=== PATIENT | female | born 1960 | race Caucasian/White ===

== ENCOUNTER 2019-05-28 06:20 | Day surgery (SDC) | payer BC ==
[~2019-05-28 06:20] MED LIST: CEFAZOLIN 2 Gram 2 GM/50 ML BAG IVPB ONE; CELECOXIB 100 MG CAPSULE PO ONE; FAMOTIDINE 20MG TABLET PO ONE; MECLIZINE 25 MG TABLET PO ONE; METOCLOPRAMIDE 10 MG TABLET PO ONE; VANCOMYCIN 1GM/200ML PREMIX 1 GM/200 ML PIGGYBACK IVPB ONE
[2019-05-28] MEDS ORDERED: EPHEDRINE SULFATE 50 MG/ML ML IV ONE (06:21)
[2019-05-28] MEDS ORDERED: DEXMEDETOMIDINE HCL 200 MCG/2 ML VIAL IV ONE (06:21)
[2019-05-28] MEDS ORDERED: MIDAZOLAM HCL 2MG/2ML VIAL IV ONE (06:21)
[2019-05-28] MEDS ORDERED: TRANEXAMIC ACID 1,000 MG/10 ML ML IV ONE (06:21)
[2019-05-28] MEDS ORDERED: DEXAMETHASONE 4 MG/ML 1ML VIAL IVP ONE (06:21)
[2019-05-28] MEDS ORDERED: ROPIVACAINE HCL (NAROPIN) /PF 5MG/ML 20ML VIAL IV ONE (06:21)
[2019-05-28] MEDS ORDERED: KETAMINE HCL 100MG/1ML VIAL INJ ONE (06:21)
[2019-05-28] MEDS ORDERED: 0.9 % SODIUM CHLORIDE 1000ML 1,000 ML IV ONE (07:00)
[2019-05-28] MEDS ORDERED: BUPIVACAINE 0.5% W/EPI MPF 30 ML VIAL SQ ONE (09:30)
[2019-05-28] MEDS ORDERED: TRANEXAMIC ACID 1,000 MG/10 ML ML IU ONE ×2 (09:36→10:42)
[2019-05-28 09:37] LABS: ABO GROUP A; ANTIBODY SCREEN NEGATIVE (NEGATIVE)
[2019-05-28] MEDS ORDERED: RINGERS SOLUTION,LACTATED 1,000 ML IV ONE ×2 (09:38)
[2019-05-28] MEDS ORDERED: HYDROCODONE/APAP 10/325 TABLET PO PRN (11:03)
[2019-05-28] MEDS ORDERED: ONDANSETRON HCL IV 4 MG/2 ML VIAL IVP PRN (11:03)
[2019-05-28] MEDS ORDERED: ZOLPIDEM TARTRATE 5 MG TABLET PO PRN (11:03)
[2019-05-28] MEDS ORDERED: HYDROMORPHONE HCL 2 MG/ML VIAL IM PRN (11:03)
[2019-05-28] MEDS ORDERED: NALOXONE 0.4 MG/1 ML VIAL IVP PRN (11:03)
[2019-05-28] MEDS ORDERED: ACETAMINOPHEN 325 MG TAB PO PRN (11:03)
[2019-05-28] MEDS ORDERED: TRAMADOL HCL 50 MG TABLET PO PRN (11:03)
[2019-05-28] MEDS ORDERED: KETOROLAC 30 MG/ML VIAL IVP PRN ×2 (11:03)
[2019-05-28] MEDS ORDERED: BISACODYL 10 MG SUPP RC PRN (11:03)
[2019-05-28] MEDS ORDERED: DIPHENHYDRAMINE HCL 25 MG CAPSULE PO PRN (11:03)
[2019-05-28] MEDS ORDERED: AL HYDROX/MAG HYDROX 30ML UD PO PRN (11:03)
[2019-05-28] MEDS ORDERED: MAGNESIUM HYDROXIDE 30 ML UDC PO PRN (11:03)
[2019-05-28] MEDS ORDERED: ACETAMINOPHEN W/ CODEINE 300MG/60MG TABLET PO PRN ×2 (11:03)
[2019-05-28] MEDS ORDERED: FLUCONAZOLE 100 MG TABLET PO ONE (13:00)
[2019-05-28] MEDS: POTASSIUM CHLORIDE/D5-0.9%NACL 20 MEQ/1,000 ML BAG IV SCH (15:09)
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
[2019-05-28] MEDS: CEFAZOLIN 2 Gram 2 GM/50 ML BAG IVPB SCH (16:53)
[2019-05-28 19:36] LABS: RH TYPE NEGATIVE
[2019-05-28] MEDS: DOCUSATE SODIUM 100 MG CAPSULE PO SCH (21:47)
[2019-05-28] MEDS: MAGNESIUM OXIDE 400 MG TABLET PO SCH (21:47)
[2019-05-28] MEDS: TOPIRAMATE 25MG TABLET PO SCH (21:49)
[2019-05-28] MEDS ORDERED: AMLODIPINE BESYLATE 5MG TAB PO SCH (22:00)
[2019-05-29] MEDS: HYDROCODONE/APAP 10/325 TABLET PO PRN ×3 (00:20→13:45)
[2019-05-29] MEDS: CEFAZOLIN 2 Gram 2 GM/50 ML BAG IVPB SCH ×2 (00:22→08:03)
[2019-05-29] MEDS: POTASSIUM CHLORIDE/D5-0.9%NACL 20 MEQ/1,000 ML BAG IV SCH ×3 (01:07→11:49)
[2019-05-29] MEDS: METOPROLOL TART 50 MG TABLET PO SCH ×2 (06:51→11:46)
[2019-05-29] MEDS ORDERED: LEVOTHYROXINE SODIUM 50 MCG TABLET PO SCH (07:00)
[2019-05-29 07:43] LABS: HEMATOCRIT 33.7 % (35.0-47.0)
[2019-05-29 07:53] LABS: BLOOD UREA NITROGEN 15 mg/dL (6-20); EST GLOMERULAR FILTRATION RATE > 60 mL/min; GLUCOSE,RANDOM 93 mg/dL (74-109)
[2019-05-29] MEDS: DOCUSATE SODIUM 100 MG CAPSULE PO SCH (09:53)
[2019-05-29] MEDS: TOPIRAMATE 25MG TABLET PO SCH (09:55)
[2019-05-29] MEDS: MAGNESIUM OXIDE 400 MG TABLET PO SCH (09:55)
[2019-05-29] MEDS ORDERED: SPIRONOLACTONE 25 MG TAB PO SCH (10:00)
[2019-05-29] MEDS ORDERED: FERROUS SULFATE 325 MG TAB PO SCH (10:00)
[2019-05-29] MEDS ORDERED: RIVAROXABAN 10 MG TABLET PO SCH (10:00)
[2019-05-29] MEDS ORDERED: ATORVASTATIN 20 MG TABLET PO SCH (10:00)
[2019-05-29] MEDS ORDERED: ASPIRIN 81 MG TABEC PO SCH (10:00)
[2019-05-29] MEDS ORDERED: LISINOPRIL 20 MG TABLET PO SCH (12:00)
--- NOTE | 2019-05-29 12:00 | Physical Therapy Tx Note ---
Physical Therapy Tx Note - Treatment Note Tolerated: Good (Patient feeling quite good this am and ready to get up for gait and stairs. Monitoring her own sugar levels for some reason. Patient able to walk short distance with standard walker:about 40 feet with CGA and WBAT. Requested wheelchair to take her to stairs so we pushed her to stairs and she was able to ambulate down three steps then back up three steps with walker and rail for support. She did this twice because she has five steps to ascend to get into her house. Wheeled her back to her room and she transferred independently to the bed the worked on knee exercises and tolerated. Left her seated at edge of bed because OT was ready to work with her for clean-up and dressing. came later after we were done and requested to see how to help patient on stairs: we demonstrated for him to have patient hang onto walker and another person for stability as have no rail at steps she will go up to get into house. seemed to understand.) Total Time Spent With Patient: 30 Physical Therapy Tx Note: Detail (See above.) Physical Therapy Problem List: Detail (1. Weakness and decreased ROM right knee 2. Decreased mobility for transfers and gait 3. Not able to do stairs yet to get into house.) Physical Therapy Goals: Patient will be able to mobilize with min assist or independently and walk with standard walker at least 50 feet and climb five jax ps to be able to get into house before discharge home. Prognosis: Good (Patient was able with assist of rail to go up and down steps but will not have that at home. Another person is going to assist so should be able to be successful getting into house with his assistance and walker.) Physical Therapy Plan: Patient has passed goals of mobility, gait and stairs to be discharged from PT. Will have home therapy to progress when gets home. Available to be seen again by PT if patient or has issues.
--- NOTE | 2019-05-29 12:10 | Occupational Therapy Tx Note ---
Occupational Therapy Tx Note - Treatment Note Tolerated: Good Total Time Spent With Patient: 32 (2 ADL) Occupational Therapy Treatment Note: Detail (S: Pt at EOB just finishing with PT upon therapist arrival, agreeable to OT Tx, MERLE Lawrence present and Pt and RN monitoring blood glucose. O: EOB to/from standard toilet with FWW and MOD I, Pt demos good controlled descent to toilet. OT educated Pt on modified techniques for LB dress, underwear, pants, socks, Pt demos good follow through at MOD I level with increased time and modified technique. Therapist instructed Pt on techniques to don tedhose and reminded Pt of wearing schedule, Pt reports spouse assists with compression socks at home and can assist if needed. OT educated Pt on modified technique for sit-stands to decreased pain and increase independence. OT educated Pt car and tub/shower TFs as well as home safety, Pt verbalizes understanding. EOB to supine with MOD I, increased time. Pt's glucose slowly dropping throughout Tx, 64 at end of session, Pt reports this is okay but MERLE Lawrence notified anyway. A: Pt requiring increased time for ADLs and functional TFs, however demos and verbalizes good safety and independence with ADLs and functional mobility. Reports spouse will assist as needed.) Occupational Therapy Problem List: Detail Occupational Therapy Goals: GOALS MET: 1. Pt will be MOD I with LB dressing using AE as needed. 2. Pt will be MOD I with fxl TFs using walker. 3. Pt will verbalize home safety Prognosis: Good Occupational Therapy Plan: No further skilled IP OT needs/goals identified, DC OT services, recommend DC home with spouse assist as needed when medically ready.
--- NOTE | 2019-05-30 15:40 | Operative Note ---
DATE OF SURGERY: 05/28/2019 PREOPERATIVE DIAGNOSIS: Endstage arthrosis of the right knee. POSTOPERATIVE DIAGNOSIS: Endstage arthrosis of the right knee. OPERATION: Cemented right total knee arthroplasty using [employer] Cathryn II components, with a size 4 Oxinium posterior stabilized femoral component, size 3 stem tibial baseplate, a 9 mm posterior stabilized tibial insert, and a 35 mm all plastic patella. SURGEON: Urbano Yousif M.D. ANESTHESIA: Spinal. PREPARATION: Chloraprep. INDIVIDUAL CONSIDERATIONS: This lady who is morbidly obese with body mass index above 40. Because of very thick soft tissue in areas almost 3 inches it made exposure and surgical time longer and more difficult. PROCEDURE: The patient was taken to the operating room and placed supine on the operating room table. She had a successful induction with spinal anesthetic. Her right lower extremity was prepped and draped in the usual fashion. The limb was elevated, the tourniquet was inflated at 300 mmHg. The patient had a midline approach to the knee. Sharp dissection carried down through the skin and subcutaneous tissue, which was abundant. Small veins were coagulated with the Bovie. A medial arthrotomy was performed, the patella was everted, the knee was flexed to the exposed bone in the patella and in some ways the lateral compartment. The fat pad was resected, the ACL was sacrificed. Provisional anterior meniscectomies were performed and the capsule was released from the medial proximal tibia. The initial femoral sdv pilot/navigator/dds operator hole was then made freehand. The intramedullary femoral cutting jig was placed. It was cut in 7.0 degrees of valgus and adjusted for rotation, secured with pins for a 10 mm resection. The initial transverse cut was then made. A skid guide was placed through the anterior and posterior sdv pilot/navigator/dds operator holes. It was found that a size 4 would be appropriate, but I had to translate it anteriorly 2 mm. The anterior and posterior cuts were made, osteophytes removed, and a size 4 trial was placed and found to fit well. The tibia was brought forward. The remainder of the meniscal remnants were removed with a Bovie. The extraarticular tibial cutting jig was placed. It was cut in neutral with a 3 degree AP slope. It was set for a 9 mm resection keyed off the high lateral side and secured with pins. When cutting the tibia, care was taken to try and preserve the PCL insertion on the tibia, but I was unable to do that. After cutting the tibia and the osteophytes removed, I was able to fit a size 3 and adjust it for rotation, secured with pins. I then placed the guide for the notch guide for the posterior stabilized femur, reamed the notch, used the box cutting osteotome and debrided off the soft tissue. With the posterior stabilized femur, size 4 and a 9 mm insert, there was excellent motion stability. Ligamentous balance and rotation alignment were thought to be normal. On the tibial side, the flange tibial stamp was impacted and the trial components were removed. The patient had a thick patella, roughly 9 mm of bone was removed freehand, 3 sdv pilot/navigator/dds operator holes were drilled for a 35 patella. The tourniquet was let down briefly to get bleeders posteriorly and then placed back up again. The knee was then thoroughly irrigated out with pulsatile Betadine and saline to remove any visual or palpable debris. The bony surfaces were then dried. A size 3 stem tibia baseplate was cemented into place, followed by cementing in the size 4 posterior stabilized femur, followed by impaction of the 9 mm posterior stabilized tibial insert, followed by cementing in the 35 mm patella. The implant surfaces were compressed, excess cement was removed, and after the cement had set, there was excellent motion stability, ligamentous balance and rotation alignment. Patellofemoral tracking were normal. No lateral release was required. The tourniquet was let down, hemostasis was obtained with a Bovie OP, final irrigation, and then I infiltrated the skin and periosteum with 30 mL of 0.5% Marcaine with epinephrine. The capsule was then closed with a running #2 Quill, the subq was closed in layers of running 0 Quill, the skin was closed with kelley. I mixed 1 gram of tranexamic acid with 30 mL of saline, injected into the knee through a sterile 18 gauge needle and a sterile bulky compressive DEBBIE-type dressing was applied. The patient tolerated the procedure well. The needle and sponge counts were correct. Estimated blood loss was minimal. She was taken back to recovery in good condition. There were no complications. SHERICE
== END 2019-05-29 15:15 | disposition home health service (06) ==
LOC: SUR 06:20 → MEDSURG 12:02 → SUR 05-29 15:15
PROVIDERS: ATTEND Orthopaedic Surgery
DX: M17.11 Unilateral primary osteoarthritis, right knee (principal); E11.9 Type 2 diabetes mellitus without complications; Z79.4 Long term (current) use of insulin; E78.00 Pure hypercholesterolemia, unspecified; I10 Essential (primary) hypertension; Z68.42 Body mass index [BMI] 45.0-49.9, adult
CPT/HCPCS: 36416; 76942; 80048; 82948; 85014; 85018; 86850; 86900; 86901; J1885; J3370; J3480; J3490; J7030; J7120